=== PATIENT | male | born 1960 | race Caucasian/White ===

== ENCOUNTER 2018-08-13 00:15 | Emergency (ER) | payer OTHER ==
[~2018-08-13] VITALS: Ht 175.3 cm; Wt 81.6 kg
[2018-08-13 00:17] VITALS: BP 140/115
[2018-08-13] MEDS ORDERED: BACITRACIN OINT 500 UNITS/GM PKT TP ONE (01:00)
[2018-08-13 03:40] VITALS: BP 103/59
== END 2018-08-13 03:39 | disposition home or self-care (01) ==
LOC: MED 00:15
DX: S00.01XA Abrasion of scalp, initial encounter (principal); F10.129 Alcohol abuse with intoxication, unspecified; J44.9 Chronic obstructive pulmonary disease, unspecified; I10 Essential (primary) hypertension; W18.30XA Fall on same level, unspecified, initial encounter; Y93.89 Activity, other specified; Y92.89 Other specified places as the place of occurrence of the external cause; Y99.8 Other external cause status
CPT/HCPCS: 70450; 72125; 90471; 90715; 99284

== ENCOUNTER 2022-07-08 19:10 | Emergency (ER) | payer OTHER ==
[~2022-07-08] VITALS: Ht 175.3 cm; Wt 83.9 kg
[2022-07-08 19:15] VITALS: BP 132/75
--- NOTE | 2022-07-08 19:35 | NUR ---
PT BIBA BLS, TAKEN ER BED 8
--- NOTE | 2022-07-08 20:30 | NUR ---
61 Y/O MALE BIBA FROM [place], PER EMS PT WAS IN FRONT OF THE PARK AND SMELLING STRONGLY OF ALCOHOL. PER PT HE DRANK A 6 PACK OF BEER,AND "HAD A LOT OF FUN", A/OX2 TO SELF AND SITUATION. DOES NOT KNOW WHERE HE IS AND THE DATE AND TIME [facility] PMA: HTN, COPD, "BUSTED KNEES"
[2022-07-08 20:55] LABS: BASOPHILS # (AUTO) 0.1 K/uL (0.00-0.22); BASOPHILS % (AUTO) 0.6 % (0.0-2.0); EOSINOPHILS # (AUTO) 0.4 K/uL (0-0.4); EOSINOPHILS % (AUTO) 3.6 % (0.0-4.0); HEMATOCRIT 36.3 % (36-52); HEMOGLOBIN 12.7 g/dL (12.0-18.0); LYMPHOCYTES # (AUTO) 1.8 K/uL (2.0-11.5); MEAN CORPUSCULAR HEMOGLOBIN 32 pg (27-31); MEAN CORPUSCULAR HGB CONC 35 g/dL (33-37); MEAN CORPUSCULAR VOLUME 92.4 fL (80-94); MONOCYTES # (AUTO) 0.5 K/uL (0.8-1.0); MONOCYTES % (AUTO) 5.3 % (1.7-9.3); NEUTROPHILS # (AUTO) 7.6 K/uL (1.8-7.7); NEUTROPHILS % (AUTO) 73.5 % (42.2-75.2); PLATELET COUNT (AUTO) 270 K/uL (140-450); RED BLOOD CELL COUNT(AUTO) 3.93 MIL/uL (4.20-6.10); RED CELL DISTRIBUTION WIDTH 12.3 % (11.6-13.7); WHITE BLOOD COUNT (AUTO) 10.3 K/uL (4.8-10.8)
--- NOTE | 2022-07-08 21:06 | NUR ---
Dr. Barroso examining patient.
[2022-07-08 21:14] LABS: ACETAMINOPHEN < 0.5 ug/ml (10-30); ALBUMIN 3.1 g/dL (3.4-5.0); ANION GAP 13.2 (8-16); ASPARTATE AMINOTRANSFERASE 13 U/L (15-37); CARBON DIOXIDE 25.9 mmol/L (21-32); CHLORIDE 99 mmol/L (98-107); CREATININE 0.9 mg/dL (0.6-1.3); GFR ARICAN-AMERICAN 110 mL/min (>90); GLUCOSE 110 mg/dL (74-106); POTASSIUM 3.1 mmol/L (3.5-5.1); SALICYLATE < 2.8 mg/dL (2.8-20.0); SODIUM SERUM 135 mmol/L (136-145); TOTAL BILIRUBIN 0.3 mg/dL (0.0-1.0); UREA NITROGEN, BLOOD 10 mg/dL (7-18)
[2022-07-08] MEDS ORDERED: CALCIUM GLUC 1 GM/50 mL NS BAG 50 ML IV ONE (21:55)
[2022-07-08] MEDS ORDERED: POTASSIUM CHLORIDE 10 MEQ TABER PO ONE (21:55)
--- NOTE | 2022-07-08 22:00 | NUR ---
PATIENT UP AND AMBULATORY. AAOX3. CHANGED PATIENT INTO CLEAN CLOTHES AND GOWN.
--- NOTE | 2022-07-08 22:03 | NUR ---
PATIENT MEDICATED WITH POTASSIUM PER ORDERS. TOLERATED WELL
--- NOTE | 2022-07-08 22:44 | NUR ---
PT AMBULATED TO BATHROOM
--- NOTE | 2022-07-08 22:48 | NUR ---
PATIENT AMBULATED TO . GAIT STEADY. PATIENT AAOX4. STATED HE HAD A GOOD TIME "PATYING IT UP"
[2022-07-08 22:50] VITALS: BP 106/78
--- NOTE | 2022-07-08 22:50 | NUR ---
Patient discharged with v/s stable. Written and verbal after care instructions given and explained. Patient verbalized understanding. Ambulatory with steady gait. All questions addressed prior to discharge. Advised to follow up with PMD.
--- NOTE | 2022-07-08 22:53 | NUR ---
The patient's care was reviewed and supervised by Claudia Finnegan RN.
== END 2022-07-08 22:50 | disposition home or self-care (01) ==
LOC: MED 19:10
DX: R41.82 Altered mental status, unspecified (principal); F10.129 Alcohol abuse with intoxication, unspecified; E83.51 Hypocalcemia; E87.6 Hypokalemia; J44.9 Chronic obstructive pulmonary disease, unspecified; I10 Essential (primary) hypertension
CPT/HCPCS: 36415; 80053; 85025; 99285; G0480; G0482

== ENCOUNTER 2023-11-02 18:43 | Emergency (ER) | payer OTHER ==
[~2023-11-02] VITALS: Ht 167.6 cm; Wt 72.6 kg
[2023-11-02 19:04] VITALS: BP 136/79; PULSE 97; RESP 18; TEMP 97; O2SAT 98
== END 2023-11-02 19:59 | disposition home or self-care (01) ==
LOC: MED 18:43
DX: F10.129 Alcohol abuse with intoxication, unspecified (principal); J44.9 Chronic obstructive pulmonary disease, unspecified; I10 Essential (primary) hypertension; Z79.899 Other long term (current) drug therapy; Y90.9 Presence of alcohol in blood, level not specified
CPT/HCPCS: 99283